=== PATIENT | male | born 1970 | race Caucasian/White ===

== ENCOUNTER 2017-09-21 22:26 | Emergency (ER) | payer OTHER ==
[~2017-09-21] VITALS: Ht 170.2 cm; Wt 91.6 kg
[2017-09-21] MEDS ORDERED: DEPAKOTE ER500 MG PO (22:36)
[2017-09-21] MEDS ORDERED: TRAZODONE HCL100 MG PO (22:37)
[2017-09-21] MEDS ORDERED: GABAPENTIN 100100 MG PO (22:37)
[2017-09-21] MEDS ORDERED: LEXAPRO20 MG PO (22:37)
[2017-09-21] MEDS ORDERED: HYDROXYZINE HCL50 MG PO (22:38)
[2017-09-21] MEDS ORDERED: MINIPRESS2 MG PO (22:38)
[2017-09-21] MEDS ORDERED: LEVEMIR FL100 UNIT/2 SUBQ (22:39)
[2017-09-21] MEDS ORDERED: NITROGLYCERIN0.4 MG PO (22:39)
[2017-09-21] MEDS ORDERED: IBUPROFEN 800800 M1 PO (23:00)
[2017-09-21 23:17] VITALS: BP 109/70
== END 2017-09-21 23:18 | disposition home or self-care (01) ==
LOC: M.ERS 22:26
DX: S89.81XA Other specified injuries of right lower leg, initial encounter (principal); Z88.6 Allergy status to analgesic agent; Z91.041 Radiographic dye allergy status; Z88.8 Allergy status to other drugs, medicaments and biological substances; X58.XXXA Exposure to other specified factors, initial encounter; Y93.89 Activity, other specified; Y92.89 Other specified places as the place of occurrence of the external cause; Y99.8 Other external cause status

== ENCOUNTER 2017-09-27 00:17 | Emergency (ER) | payer OTHER ==
[~2017-09-27] VITALS: Ht 170.2 cm; Wt 91.6 kg
[~2017-09-27 00:17] MED LIST: DEPAKOTE ER500 MG PO; GABAPENTIN 100100 MG PO; HYDROXYZINE HCL50 MG PO; IBUPROFEN 800800 M1 PO; LEVEMIR FL100 UNIT/2 SUBQ; LEXAPRO20 MG PO; MINIPRESS2 MG PO; NITROGLYCERIN0.4 MG PO; TRAZODONE HCL100 MG PO
[2017-09-27 00:55] VITALS: BP 131/82
== END 2017-09-27 00:55 | disposition home or self-care (01) ==
LOC: M.ERS 00:17
DX: M25.561 Pain in right knee (principal); E11.9 Type 2 diabetes mellitus without complications; F31.9 Bipolar disorder, unspecified; F17.200 Nicotine dependence, unspecified, uncomplicated; Z79.4 Long term (current) use of insulin; Z91.041 Radiographic dye allergy status; Z88.6 Allergy status to analgesic agent; Z88.8 Allergy status to other drugs, medicaments and biological substances

== ENCOUNTER 2017-10-30 22:01 | Emergency (ER) | payer OTHER ==
[~2017-10-30] VITALS: Ht 170.2 cm; Wt 92.1 kg
--- NOTE | ~2017-10-30 | EKG ---
[place] [address] ELECTROCARDIOGRAM REPORT Name: AFSANEH IRBY Room: [facility]#: [id number] Admission: 10/30/17 Attend Phys: Discharge: 10/31/17 Date of : 74 Report #: [id number] THIS REPORT FOR: //name// [facility] Test Date: 2017-11-01 Test Time: 04:56:15 Pat Name: AFSANEH IRBY Department: Room: [address] Gender: M De Alcholizer: ABHAY : 1970 Requested By: Myra Costa Order Number: [id number] Reading MD: Measurements Intervals [place] Rate: 54 P: 50 [place]: 156 QRS: 11 QRSD: 90 T: 1 QT: 456 QTc: 433 Interpretive Statements Sinus rhythm Compared to ECG 10/31/2017 01:23:42 No significant changes [email or web address] By: 5 045 Epiphany MD Rodrigo /EPI
[2017-10-30] MEDS ORDERED: PRAZOSIN 1 MG CA1 M1 (22:09)
[2017-10-30] MEDS ORDERED: CRESTOR40 MG PO (22:10)
[2017-10-30 22:48] LABS: ABSOLUTE EOSINOPHILS 0.1 thou/uL (0.0-0.7); ABSOLUTE LYMPHOCYTES 2.8 thou/uL (0.8-5.3); ABSOLUTE MONOCYTES 0.6 thou/uL (0.0-1.2); ABSOLUTE NEUTROPHILS 5.7 thou/uL (1.6-8.1); BASOPHILS 0.4 %; EOSINOPHILS 0.7 %; HEMATOCRIT 46.3 % (42.0-52.0); HEMOGLOBIN 15.8 gm/dL (14.0-18.0); LYMPHOCYTES 30.4 %; MCH 30.1 pg (26.0-34.0); MCHC 34.1 g/dL (28.0-37.0); MCV 88.1 fL (80.0-100.0); MONOCYTES 6.5 %; MPV 7.7 fl. (7.2-11.1); NUCLEATED RBCS 0 /100WBC; PLATELET COUNT* 255 thou/uL (150-400); RBC 5.25 mil/uL (4.50-6.00); RDW-CV 13.2 % (10.5-14.5); WBC 9.2 thou/uL (4.0-11.0)
[2017-10-30 22:58] LABS: ANION GAP 10 mmol/L (7-16); BUN 10 mg/dL (7-18); CALCIUM 8.6 mg/dL (8.5-10.1); CHLORIDE 102 mmol/L (98-107); CO2 25 mmol/L (21-32); CREATININE 1.1 mg/dL (0.6-1.3); GLUCOSE 102 mg/dL (70-99); POTASSIUM 3.5 mmol/L (3.5-5.1); SODIUM 137 mmol/L (136-145)
[2017-10-30 23:09] LABS: ALBUMIN 3.5 g/dL (3.4-5.0); ALKALINE PHOSPHATASE 59 U/L (46-116); LIPASE 214 U/L (73-393); NT-PRO BRAIN NAT PEPTIDE 28 pg/mL (<300); SGOT 17 U/L (15-37); SGPT 28 U/L (30-65); TOTAL BILIRUBIN 0.2 mg/dL (<0.1-1.0); TOTAL PROTEIN 6.3 g/dL (6.4-8.2); TROPONIN-I LEVEL <0.06 ng/mL (<0.06)
[2017-10-31 00:54] LABS: URINE BILIRUBIN NEGATIVE (Negative); URINE BLOOD NEGATIVE (Negative); URINE CLARITY CLEAR; URINE COLOR YELLOW; URINE GLUCOSE-RANDOM NEGATIVE (Negative); URINE KETONES NEGATIVE (Negative); URINE LEUKOCYTES-REFLEX NEGATIVE (Negative); URINE NITRITE-REFLEX NEGATIVE (Negative); URINE PROTEIN NEGATIVE (Negative); URINE SPECIFIC GRAVITY <= 1.005 (1.005-1.030); URINE UROBILINOGEN 0.2 E.U./dl (0.2-1.0)
[2017-10-31] MEDS ORDERED: NORCO 7.5-3251 EACH PO (02:04)
[2017-10-31 02:14] VITALS: BP 114/77
--- NOTE | 2017-10-31 14:51 | EKG ---
[place] [address] ELECTROCARDIOGRAM REPORT Name: AFSANEH IRBY Room: [facility]#: [id number] Admission: 10/30/17 Attend Phys: Discharge: 10/31/17 Date of : 74 Report #: [id number] THIS REPORT FOR: //name// [facility] ED Test Date: 2017-10-30 Test Time: 22:06:14 Pat Name: AFSANEH IRBY Department: Room: Gender: M Diagnostics Tech: PIPPA : 1970 Requested By: Marely Fletcher Order Number: [id number] MD: Luis Levine Measurements Intervals [place] Rate: 100 P: 65 MD: 141 QRS: 17 QRSD: 83 T: 5 QT: 341 QTc: 440 Interpretive Statements Sinus tachycardia No previous ECG available for comparison Electronically Signed On 10-31-2017 14:51:41 CDT by Luis Levine [email or web address] <ELECTRONICALLY SIGNED> By: Luis Levine MD, [facility] 10/31/17 1451 2206 2206 Luis Levine MD, FACC /EPI
--- NOTE | 2017-10-31 14:52 | EKG ---
[place] [address] ELECTROCARDIOGRAM REPORT Name: AFSANEH IRBY Room: [facility]#: [id number] Admission: 10/30/17 Attend Phys: Discharge: 10/31/17 Date of : 74 Report #: [id number] THIS REPORT FOR: //name// [facility] ED Test Date: 2017-10-31 Test Time: 01:23:42 Pat Name: AFSANEH IRBY Department: Room: Gender: M Hand Packer: : 1970 Requested By: Marely Fletcher Order Number: [id number] MD: Luis Levine Measurements Intervals [place] Rate: 73 P: 48 [place]: 155 QRS: 10 QRSD: 87 T: 3 QT: 406 QTc: 448 Interpretive Statements Sinus rhythm No previous ECG available for comparison Electronically Signed On 10-31-2017 14:51:56 CDT by Luis Levine [email or web address] <ELECTRONICALLY SIGNED> By: Luis Levine MD, [facility] 10/31/17 1451 0123 0123 Luis Levine MD, FACC /EPI
== END 2017-10-31 02:16 | disposition home or self-care (01) ==
LOC: M.ERS 22:01
PROVIDERS: Emergency Medicine
DX: R07.89 Other chest pain (principal); E11.9 Type 2 diabetes mellitus without complications; F31.9 Bipolar disorder, unspecified; Z91.041 Radiographic dye allergy status; Z88.8 Allergy status to other drugs, medicaments and biological substances

== ENCOUNTER 2017-10-31 20:57 | Observation (INO) | payer OTHER ==
[~2017-10-31] VITALS: Ht 170.2 cm; Wt 90.3 kg
[~2017-10-31 20:57] MED LIST changes: +CRESTOR40 MG PO; +NORCO 7.5-3251 EACH PO; +PRAZOSIN 1 MG CA1 M1
[2017-10-31 21:04] VITALS: BP 122/62
[2017-10-31 22:43] LABS: ABSOLUTE EOSINOPHILS 0.1 thou/uL (0.0-0.7); ABSOLUTE LYMPHOCYTES 3.4 thou/uL (0.8-5.3); ABSOLUTE MONOCYTES 0.5 thou/uL (0.0-1.2); ABSOLUTE NEUTROPHILS 3.4 thou/uL (1.6-8.1); BASOPHILS 0.5 %; EOSINOPHILS 1.5 %; HEMATOCRIT 44.5 % (42.0-52.0); HEMOGLOBIN 14.8 gm/dL (14.0-18.0); MCH 29.8 pg (26.0-34.0); MCHC 33.2 g/dL (28.0-37.0); MCV 89.6 fL (80.0-100.0); MONOCYTES 6.9 %; MPV 8.2 fl. (7.2-11.1); NUCLEATED RBCS 0 /100WBC; PLATELET COUNT* 201 thou/uL (150-400); POLYS 45.1 %; RBC 4.96 mil/uL (4.50-6.00); RDW-CV 13.2 % (10.5-14.5); WBC 7.5 thou/uL (4.0-11.0)
[2017-10-31 22:49] LABS: ANION GAP 5 mmol/L (7-16); BUN 11 mg/dL (7-18); CALCIUM 8.1 mg/dL (8.5-10.1); CHLORIDE 103 mmol/L (98-107); CO2 29 mmol/L (21-32); CREATININE 1.1 mg/dL (0.6-1.3); GLUCOSE 182 mg/dL (70-99); POTASSIUM 3.5 mmol/L (3.5-5.1); SODIUM 137 mmol/L (136-145)
[2017-10-31 23:01] LABS: ALBUMIN 3.1 g/dL (3.4-5.0); ALKALINE PHOSPHATASE 54 U/L (46-116); LIPASE 196 U/L (73-393); SGOT 22 U/L (15-37); SGPT 27 U/L (30-65); TOTAL BILIRUBIN 0.2 mg/dL (<0.1-1.0); TOTAL PROTEIN 5.8 g/dL (6.4-8.2); TROPONIN-I LEVEL <0.06 ng/mL (<0.06)
[2017-10-31 23:07] LABS: APTT 25.2 Seconds (25.0-31.3); PROTIME 10.1 Seconds (9.20-11.50)
[2017-11-01] VITALS (7 sets, daily range): BP systolic 103–127; BP diastolic 53–68
--- NOTE | 2017-11-01 15:59 | EXE ---
[place] [address] STRESS ECHOCARDIOGRAM Name: MAHAMEDAFSANEH Ren [address] [id number] Admission: 10/31/17 Attend Phys: Cortes Regalado Discharge: Date of : 74 Date of Service: 11/01/17 1558 Report #: [id number] THIS REPORT FOR: //name// APPROVED REPORT Study performed: 11/01/2017 15:21:59 Exam: Stress Echocardiogram Indication: Chest pain Patient Location: In-Patient Stress Nurse: Su Cervantes RN Supervising Physician: Luis Levine MD Status: routine Ht: 5 ft 7 in HR: 84 bpm BP: 91/67 mmHg Rhythm: NSR Medical History Cardiac Risk Factors: Hyperlipidemia, Smoking, DM Procedure The patient underwent an Exercise Stress Test using the Kevin Protocol. Blood pressure, heart rate, and EKG were monitored. An Echocardiogram was performed by organic preparation technician in four stages in quad fashion. At peak stress, four selected images were obtained and placed side by side with resting images for comparison. Stress Test Details Stress Test: Exercise stress testing was performed using a Kevin protocol. HR Resting HR: 84 bpm Max Heart Rate (APMHR): 175 bpm Max HR Achieved: 152 bpm Target HR (85% APMHR): 148 bpm % of APMHR: 86 Recovery HR: 97 bpm HR response to stress: Normal HR response to stress BP Resting BP: 91/67 mmHg Max BP: 131/57 mmHg Recovery BP: 96/67 mmHg ECG Resting ECG: [place] [address] STRESS ECHOCARDIOGRAM Name: AFSANEH IRBY Room: [address]#: [id number] Admission: 10/31/17 Attend Phys: Cortes Regalado Discharge: Date of : 74 Date of Service: 11/01/17 1558 Report #: [id number] Stress ECG: Sinus Tachycardia ST Change: None Arrhythmia: None Recovery ECG: Sinus Rhythm Recovery ST Change: None Recovery Arrhythmia: None Clinical Reason for Termination: Maximal effort, Dyspnea Exercise duration: 9 min 48 sec Highest Stage Achieved: Stage 4: 4.2 mph at 16% grade. Exercise capacity: 11.44 METs Stress ECG Conclusion Normal stress EKG. Pre-Stress Echo The resting Echocardiogram showed normal left ventricular contractility with an estimated Ejection Fraction of about 55-60%. Post-Stress Echo The stress Echocardiogram showed normal left ventricular contractility with an estimated Ejection Fraction of about >70%. Normal augmentation of wall motion in all segments on post stress images. Clinical No clinical or ECG evidence for ischemia. Conclusion Clinical Response: Non-ischemic Exercise Capacity: Fair Stress ECG Response: Non-ischemic Stress Echo Images: Non-ischemic The left ventricle is normal in size and wall thickness in both the rest and stress images. Other Information Study Quality: Good <Conclusion> [place] [address] STRESS ECHOCARDIOGRAM Name: AFSANEH IRBY Room: [address] Maya#: [id number] Admission: 10/31/17 Attend Phys: Cortes Regalado Discharge: Date of : 74 Date of Service: 11/01/17 1558 Report #: [id number] The left ventricle is normal in size and wall thickness in both the rest and stress images. <ELECTRONICALLY SIGNED> By: Luis Levine MD, FACC 11/01/17 1558 57 Luis Levine MD, FACC /INF
--- NOTE | 2017-11-01 17:57 | EKG ---
[place] [address] ELECTROCARDIOGRAM REPORT Name: AFSANEH IRBY Room: [address]#: [id number] Admission: 10/31/17 Attend Phys: Karley Cifuentes Discharge: Date of : 74 Report #: [id number] THIS REPORT FOR: //name// [facility] ED Test Date: 2017-10-31 Test Time: 21:05:45 Pat Name: AFSANEH IRBY Department: Room: [facility] Gender: M Historic Interpreter: SALAZAR : 1970 Requested By: Myra Costa Order Number: [id number] MD: Luis Levine Measurements Intervals [place] Rate: 86 P: 51 [place]: 151 QRS: 17 QRSD: 85 T: 9 QT: 379 QTc: 454 Interpretive Statements Sinus rhythm Compared to ECG 10/31/2017 01:23:42 No significant changes Electronically Signed On 11-01-2017 17:57:04 CDT by Luis Levine [email or web address] <ELECTRONICALLY SIGNED> By: Luis Levine MD, [facility] 11/01/17 1757 04 04 Luis Levine MD, FACC /EPI
--- NOTE | 2017-11-04 13:10 | CON ---
[address] [address] CONSULTATION Name: MAHAMEDAFSANEH Gela Room: [address] Aaliyah Trejo#: [id number] Admission: 10/31/17 Attend Phys: Karley Cifuentes Discharge: 11/01/17 Date of : 74 Report #: [id number] THIS REPORT FOR: //name// CC: Dr. Ga QUEVEDO physician/PCP Cortes Regalado INDICATION: Chest pain. HISTORY OF PRESENT ILLNESS: The patient is a 47-year-old gentleman who reports a history of angina in the past. Catheterization in [place], [place] showed no evidence of occlusive coronary artery disease. The patient was admitted to the hospital with chest pain. He reports left-sided chest pain without radiation associated with diaphoresis and nausea with no vomiting. Pain persisted for 2 hours yesterday. At this time, he is pain free. Cardiac risk factors include type 2 diabetes mellitus, hyperlipidemia and tobacco use. He denies hypertension. Family history was noncontributory. PAST MEDICAL HISTORY: 1. Type 2 diabetes mellitus. 2. Hyperlipidemia. 3. Chronic tobacco use. 4. Skin graft to the left lower leg. FAMILY HISTORY: Noncontributory. SOCIAL HISTORY: The patient does smoke. He denies use of alcohol. He is single. ALLERGIES: ASPIRIN WHICH CAUSES A FEVER, METFORMIN WHICH CAUSES NAUSEA, BENADRYL WHICH CAUSES AGGRAVATION AND IODINE WHICH CAUSES A RASH. CURRENT MEDICATIONS: Depakote ER 500 mg b.i.d., Lexapro 20 mg daily, gabapentin 100 mg t.i.d., hydrocodone/acetaminophen 7.5/325 q. 6h. p.r.n., hydroxyzine 50 mg t.i.d., ibuprofen 800 mg q. 8 hours, Levemir 10 units as directed, Nitrostat p.r.n., prazosin 2 mg at bedtime, Crestor 40 mg as directed and trazodone 100 mg at bedtime. REVIEW OF SYSTEMS: A 14-point review of systems is positive for fever, chest pain, shortness of breath with activity, lower extremity swelling, type 2 diabetes mellitus, ALLERGY TO ASPIRIN, medical allergies outlined above, depression, anxiety and he wears glasses without acute visual changes, otherwise 14-point review of systems was unremarkable. PHYSICAL EXAMINATION: VITAL SIGNS: Stable. Blood pressure 125/68 and, pulse 79 and regular. GENERAL: This is a mildly obese, pleasant white male, [place] [address] CONSULTATION Name: AFSANEH IRBY Room: [address]#: [id number] Admission: 10/31/17 Attend Phys: Karley Cifuentes Discharge: 11/01/17 Date of : 74 Report #: [id number] affect appropriate. HEENT: Extraocular muscles intact. Mucous membranes are moist. NECK: Examination of the neck shows no jugular venous distention. There are no carotid bruits. CHEST: Examination of the chest reveals clear lung ferguson. CARDIAC: Reveals a regular rhythm without gallop or murmur. ABDOMEN: Examination of the abdomen reveals normal bowel sounds. The abdomen is soft and nontender. EXTREMITIES: Examination of the extremities shows no edema. Peripheral pulses 2+ and easily palpable. SKIN: Warm and dry. LABORATORY DATA: Troponins are less than 0.06 on multiple occasions. EKG x 2 shows sinus rhythm with no significant ST or T-wave abnormalities. IMPRESSION AND RECOMMENDATION: 1. Atypical chest pain. We will proceed with stress echocardiogram. Further intervention pending those results. 2. Type 2 diabetes mellitus per primary physician. 3. Dyslipidemia. Continue Crestor at current dose. 4. Tobacco use, cessation advised. <ELECTRONICALLY SIGNED> By: Luis Levine MD, FACC 11/04/17 1310 1352 0503Miceboni Levine MD, FACC /nt
== END 2017-11-01 19:15 | disposition home or self-care (01) ==
LOC: M.ERS 20:57 → M.TBA-ER 23:20 → M.2W 23:20
PROVIDERS: Personal Emergency Response Attendant; ADMIT Internal Medicine
DX: R07.89 Other chest pain (principal); F43.10 Post-traumatic stress disorder, unspecified; F41.9 Anxiety disorder, unspecified; F60.9 Personality disorder, unspecified; F31.9 Bipolar disorder, unspecified; E11.9 Type 2 diabetes mellitus without complications; I20.8 Other forms of angina pectoris; E78.5 Hyperlipidemia, unspecified; F17.210 Nicotine dependence, cigarettes, uncomplicated; Z79.4 Long term (current) use of insulin

== ENCOUNTER 2018-03-10 15:13 | Emergency (ER) | payer OTHER ==
[~2018-03-10] VITALS: Ht 170.2 cm; Wt 91.6 kg
--- NOTE | ~2018-03-10 | EKG ---
[place] [address] ELECTROCARDIOGRAM REPORT Name: AFSANEH IRBY Room: [facility]#: [id number] Admission: 03/10/18 Attend Phys: Discharge: 03/10/18 Date of : 74 Report #: [id number] THIS REPORT FOR: //name// [facility] ED Test Date: 2018-03-10 Test Time: 15:18:50 Pat Name: AFSANEH IRBY Department: Room: Gender: M Fitness Coordinator: EUSEBIO : 1970 Requested By: Jon Casillas Order Number: [id number] MD: Measurements Intervals [place] Rate: 81 P: 65 [place]: 149 QRS: 33 QRSD: 83 T: 21 QT: 370 QTc: 430 Interpretive Statements Sinus rhythm Compared to ECG 11/01/2017 04:56:15 No significant changes [email or web address] By: 17 17 Epiphany MD Rodrigo /EPI
[2018-03-10] MEDS ORDERED: JANUVIA50 MG PO ×2 (15:30→17:58)
[2018-03-10 15:52] LABS: ABSOLUTE EOSINOPHILS 0.1 thou/uL (0.0-0.7); ABSOLUTE LYMPHOCYTES 1.9 thou/uL (0.8-5.3); ABSOLUTE MONOCYTES 0.4 thou/uL (0.0-1.2); ABSOLUTE NEUTROPHILS 3.1 thou/uL (1.6-8.1); BASOPHILS 0.6 %; EOSINOPHILS 1.3 %; HEMATOCRIT 43.9 % (42.0-52.0); MCH 30.1 pg (26.0-34.0); MCV 88.5 fL (80.0-100.0); MONOCYTES 7.7 %; MPV 8.1 fl. (7.2-11.1); NUCLEATED RBCS 0 /100WBC; PLATELET COUNT* 262 thou/uL (150-400); POLYS 56.4 %; RBC 4.96 mil/uL (4.50-6.00); RDW-CV 13.7 % (10.5-14.5); WBC 5.5 thou/uL (4.0-11.0)
[2018-03-10 16:03] LABS: ANION GAP 9 mmol/L (7-16); BUN 12 mg/dL (7-18); CALCIUM 8.6 mg/dL (8.5-10.1); CHLORIDE 104 mmol/L (98-107); CO2 27 mmol/L (21-32); CREATININE 0.9 mg/dL (0.6-1.3); GLUCOSE 127 mg/dL (70-99); POTASSIUM 3.7 mmol/L (3.5-5.1); SODIUM 140 mmol/L (136-145)
[2018-03-10 16:13] LABS: ALBUMIN 3.2 g/dL (3.4-5.0); ALKALINE PHOSPHATASE 95 U/L (46-116); LIPASE 249 U/L (73-393); MAGNESIUM 2.1 mg/dL (1.8-2.4); NT-PRO BRAIN NAT PEPTIDE 193 pg/mL (<300); SGOT 43 U/L (15-37); SGPT 58 U/L (30-65); TOTAL BILIRUBIN 0.3 mg/dL (<0.1-1.0); TOTAL PROTEIN 6.4 g/dL (6.4-8.2); TROPONIN-I LEVEL <0.06 ng/mL (<0.06)
[2018-03-10 18:35] VITALS: BP 116/71
--- NOTE | 2018-03-11 10:08 | EKG ---
[place] [address] ELECTROCARDIOGRAM REPORT Name: AFSANEH IRBY Room: [facility]#: [id number] Admission: 03/10/18 Attend Phys: Discharge: 03/10/18 Date of : 74 Report #: [id number] THIS REPORT FOR: //name// [facility] ED Test Date: 2018-03-10 Test Time: 15:18:50 Pat Name: AFSANEH IRBY Department: Room: Gender: M Compliance Consultant: EUSEBIO : 1970 Requested By: Jon Casillas Order Number: [id number] Reading MD: Philip Kidd Measurements Intervals [place] Rate: 81 P: 65 [place]: 149 QRS: 33 QRSD: 83 T: 21 QT: 370 QTc: 430 Interpretive Statements Sinus rhythm Compared to ECG 11/01/2017 04:56:15 rate increased Electronically Signed On 03-11-2018 10:08:33 WORK AND FAMILY LIFE CONSULTANT by Philip Kidd [email or web address] <ELECTRONICALLY SIGNED> By: Philip Kidd MD, [facility] 03/11/18 1008 1518 1518 Philip Kidd MD, FACC /EPI
--- NOTE | 2018-03-11 10:10 | EKG ---
[place] [address] ELECTROCARDIOGRAM REPORT Name: AFSANEH IRBY Room: [facility]#: [id number] Admission: 03/10/18 Attend Phys: Discharge: 03/10/18 Date of : 74 Report #: [id number] THIS REPORT FOR: //name// [facility] ED Test Date: 2018-03-10 Test Time: 17:55:25 Pat Name: AFSANEH IRBY Department: Room: Gender: M General Road Production Manager: : 1970 Requested By: Jon Casillas Order Number: [id number] MD: Philip Kidd Measurements Intervals [place] Rate: 56 P: 51 [place]: 155 QRS: 21 QRSD: 81 T: 19 QT: 422 QTc: 408 Interpretive Statements Sinus bradycardia Electronically Signed On 03-11-2018 10:10:43 AEROSPACE ASSEMBLER by Philip Kidd [email or web address] <ELECTRONICALLY SIGNED> By: Philip Kidd MD, [facility] 03/11/18 1010 1755 1755 Philip Kidd MD, FACC /EPI
== END 2018-03-10 18:36 | disposition home or self-care (01) ==
LOC: M.ERS 15:13
PROVIDERS: Emergency Medicine Emergency Medical Services
DX: R07.89 Other chest pain (principal); F31.9 Bipolar disorder, unspecified; E11.9 Type 2 diabetes mellitus without complications; Z88.6 Allergy status to analgesic agent; Z88.8 Allergy status to other drugs, medicaments and biological substances; Z91.041 Radiographic dye allergy status; Z79.4 Long term (current) use of insulin